=== PATIENT | female | born 1950 | race African-American/Black ===

== ENCOUNTER → 2016-09-24 | Outpatient (CLI) | payer MEDICARE | LOC: RAD 10:14 | PROVIDERS: ATTEND Specialist | DX: M54.5 Low back pain (principal) | CPT/HCPCS: 72110 ==

== ENCOUNTER → 2017-08-04 | Outpatient (CLI) | payer MEDICARE ==
--- NOTE | 2017-08-05 09:54 | RADIOLOGY REPORT (SQ) ---
EXAM DESCRIPTION: PET CT SKULL/THIGH COMPLETED DATE/TIME: 08/04/2017 7:53 pm REASON FOR STUDY: LUNG CANCER C34.11 MALIGNANT NEOPLASM OF UPPER LOBE, RIGHT BRONCHUS OR L COMPARISON: Prior CT chest exams 11/29/2015, 11/22/2014, 11/23/2013, 11/03/2012 [facility] prior PET-CT 12/27/2015 [facility] CT chest report 07/16/2017 RADIONUCLIDE AND DOSE: 13.6 mCi F18 FDG The route of agent administration: Intravenous FASTING BLOOD SUGAR: 79 mg/dl CONTRAST TYPE AND DOSE: No CT contrast given. TECHNIQUE: Blood glucose level was verified. Above dose of FDG was injected intravenously. 2-D seg mented attenuation correction images were obtained from the base of the skull to the midthighs. Nonc ontrast CT images were obtained for attenuation correction and fusion with emission images. CT image s were performed without oral or intravenous contrast and are not sensitive for parenchymal lesions. A series of overlapping emission PET images were obtained. Images reviewed and manipulated at [facility] work station by the radiologist. Images stored on PACS. LIMITATIONS: None. FINDINGS: HEAD AND NECK: No areas of abnormal metabolic activity in the soft tissues of the head and neck. CHEST: On image number 58, a low-density well-circumscribed lung nodule is present abutting the later al aspect of the aortic arch. This measures 2.5 x 2.3 cm in size, with SUV of 1.3. This has slowly enlarged over the series of CT exams dating back to 2012, where it measured 18 mm in greatest diamete r. This is slightly larger than on prior PET-CT report from 12/27/2015 where it measured 2.1 x 2.2 cm in size. A 1 cm x 0.7 cm pretracheal lymph node is present on axial image 58 with SUV 1.9. This is similar co mpared to prior studies dating back to 2012. ABDOMEN AND PELVIS: No areas of abnormal metabolic activity in the abdomen or pelvis. Expected physi ologic activity is present in the genitourinary system and bowel. PROXIMAL LOWER EXTREMITIES: No areas of abnormal metabolic activity in the soft tissues of the lower extremities. BONES: No abnormal metabolic activity in the visualized skeleton. ADDITIONAL CT FINDINGS: Left vocal cord paralysis. Diffuse changes of obstructive lung disease, with right upper lobectomy with surgical clips present. Post cholecystectomy and hysterectomy. Colonic diverticulosis without CT signs of acute diverticulitis OTHER: Blood pool background activity 1.9 SUV. Liver activity 2.0 SUV. IMPRESSION: Slowly enlarging mass in the medial left upper lobe upper lobe, with below baseline acti vity. Slow growth over time, as demonstrated on serial CT chest exams dating back to 2012 TECHNICAL DOCUMENTATION: JOB ID: [id number] [employer]- All Rights Reserved
== END ==
LOC: RAD 16:49
PROVIDERS: ATTEND Radiology Radiation Oncology
DX: C34.11 Malignant neoplasm of upper lobe, right bronchus or lung (principal)
CPT/HCPCS: 78815; A9552

== ENCOUNTER → 2017-08-19 | Outpatient (CLI) | payer MEDICARE ==
--- NOTE | 2017-08-19 10:54 | WOMENS IMAGING REPORT ---
EXAM DESCRIPTION: BONE DENSITY HIP/SPINE COMPLETED DATE/TIME: 08/19/2017 10:28 am REASON FOR STUDY: AGE-RELATED OSTEOPROSIS; M81.0 M81.0 AGE-RELATED OSTEOPOROSIS W/O CURRENT PATHOLO GIPEDRO FRA COMPARISON: 08/17/2015 TECHNIQUE: Dual-Energy X-ray Absorptiometry (DEXA) of the AP Spine and Hip. LIMITATIONS: None. FINDINGS: LUMBAR SPINE: The bone mineral density (BMD) measured from L1-L4 in the AP projection correlates with a T-score of -3.4, previously -3.2, which is osteoporosis as defined by the World Health Organization. HIP: The bone mineral density (BMD) measured in the left hip correlates with a T-score of -1.3, previously -1.5, which is osteopenia as defined by the World Health Organization. IMPRESSION: 1. LUMBAR SPINE: OSTEOPOROSIS. 2. HIP: OSTEOPENIA. COMMENT: The World Health Organization defines low BMD as follows: T-score: Normal: Greater than -1.0 Osteopenia: Between -1.0 and -2.5 Osteoporosis: Less than -2.5 without fractures Established osteoporosis: Less than -2.5 with fractures In general, you may wish to consider: Diagnosis Treatment Follow-up DEXA Normal BMD Prevention 2-3 years Osteopenia Prevention/Therapy 1-2 years Osteoporosis Therapy Yearly TECHNICAL DOCUMENTATION: JOB ID: [id number] [employer]- All Rights Reserved Reading location - IP/workstation name: [email or web address]
== END ==
LOC: WI 10:19
PROVIDERS: ATTEND Internal Medicine Hematology & Oncology
DX: M81.0 Age-related osteoporosis without current pathological fracture (principal)
CPT/HCPCS: 77080

== ENCOUNTER → 2018-07-08 | Outpatient (CLI) | payer MEDICARE ==
[2018-07-08 12:27] LABS: ALBUMIN 4.8 g/dL (3.5-5.0); CALCIUM 10.7 mg/dL (8.4-10.2); PHOSPHORUS 3.3 mg/dL (2.5-4.5)
== END ==
LOC: OD 11:08
PROVIDERS: ATTEND Otolaryngology
DX: E21.3 Hyperparathyroidism, unspecified (principal); Z79.899 Other long term (current) drug therapy
CPT/HCPCS: 36415; 82040; 82306; 82310; 83735; 83970; 84100; 84439; 84443

== ENCOUNTER → 2018-07-14 | Outpatient (CLI) | payer MEDICARE ==
--- NOTE | 2018-07-14 12:59 | RADIOLOGY REPORT (SQ) ---
EXAM DESCRIPTION: NM PARATHYROID IMAGING COMPLETED DATE/TIME: 07/14/2018 12:16 pm REASON FOR STUDY: HYPERPARATHYROIDISM E21.3 HYPERPARATHYROIDISM, UNSPECIFIED COMPARISON: None. RADIONUCLIDE AND DOSE: 21.0 millicuries Tc-99m Sestamibi. The route of agent administration: Intravenous ADDITIONAL DRUGS AND DOSES: None. TECHNIQUE: Early and delayed images of the neck acquired following radionuclide administration. LIMITATIONS: None. FINDINGS: Thyroid: Normal size. Homogeneous activity. Normal washout. No focal lesions. Parathyroid: No retained activity in the thyroid or elsewhere in the neck to indicate a parathyroid a denoma. Other: No other significant findings. IMPRESSION: NORMAL STUDY. NO EVIDENCE OF PARATHYROID ADENOMA. TECHNICAL DOCUMENTATION: JOB ID: [id number] [employer]- All Rights Reserved Reading location - IP/workstation name: [email or web address]
== END ==
LOC: RAD 08:04
PROVIDERS: ATTEND Otolaryngology
DX: E21.3 Hyperparathyroidism, unspecified (principal)
CPT/HCPCS: 78070; A9500; Q9969

== ENCOUNTER → 2018-07-16 | Outpatient (CLI) | payer MEDICARE ==
--- NOTE | 2018-07-16 11:35 | RADIOLOGY REPORT (SQ) ---
EXAM DESCRIPTION: U/S THYROID/SFT TISS HD NECK COMPLETED DATE/TIME: 07/16/2018 11:13 am REASON FOR STUDY: HYPERTHYROIDISM E21.3 HYPERPARATHYROIDISM, UNSPECIFIED COMPARISON: PET-CT exam 08/04/2017, CT chest 01/07/2017 TECHNIQUE: Dynamic and static greenwood-scale images acquired of the thyroid gland. Selected additional c olor/power Doppler images recorded. All images stored to PACS. LIMITATIONS: None. FINDINGS: RIGHT LOBE: Right lobe thyroid is 3.9 by 1.7 by 1.5 cm in size. Homogeneous echotexture. No cystic or solid masses. LEFT LOBE: Left lobe thyroid is 5 by 1.5 by 1.9 cm in size. Homogeneous echotexture. Benign colloid cysts are present in the lower pole left lobe thyroid measuring 4 mm and 5 mm in size. ISTHMUS: Normal size. Homogeneous echotexture. No cystic or solid masses. OTHER: No other significant finding. IMPRESSION: Benign colloid cysts left lower pole thyroid. Otherwise unremarkable study TECHNICAL DOCUMENTATION: JOB ID: [id number] [employer]- All Rights Reserved Reading location - IP/workstation name: [email or web address]
== END ==
LOC: RAD 10:07
PROVIDERS: ATTEND Otolaryngology
DX: E21.3 Hyperparathyroidism, unspecified (principal); E04.1 Nontoxic single thyroid nodule
CPT/HCPCS: 76536

== ENCOUNTER → 2018-08-15 | Outpatient (CLI) | payer MEDICARE ==
--- NOTE | 2018-08-15 15:46 | RADIOLOGY REPORT (SQ) ---
EXAM DESCRIPTION: CT SOFT TISSUE NECK COMBO COMPLETED DATE/TIME: 08/15/2018 3:20 pm REASON FOR STUDY: E21.0 PRIMARY HYPERPARATHYROIDISM E21.0 PRIMARY HYPERPARATHYROIDISM COMPARISON: Thyroid ultrasound 07/16/2018 Parathyroid imaging 07/15/2018 PET-CT 08/04/2017 CT chest exams 11/23/2013, 11/22/2014, 11/29/2015, 01/07/2017 TECHNIQUE: Post IV contrasted scanning from skull base through lung apices with review of bone, soft tissue and lung windows. Reconstructed coronal and sagittal MPR images reviewed. All images stored on PACS. All CT scanners at this facility use dose modulation, iterative reconstruction, and/or weight based d osing when appropriate to reduce radiation dose to as low as reasonably achievable (ALARA). [facility]: Dose Right [facility]: CareDose [facility]: Dose Right [facility]: Teradose 4D [facility]: [employer] CONTRAST TYPE AND DOSE: contrast/concentration: Isovue 350.00 mg/ml; Total Contrast Delivered: 75.0 ml; Total Saline Delivered: 55.0 ml RENAL FUNCTION: Creatinine 0.5 RADIATION DOSE: 35 mGy . LIMITATIONS: None. FINDINGS: SKULL BASE: Intact. MAJOR SALIVARY GLANDS: No solid or cystic masses. No inflammatory changes. LYMPHADENOPATHY: No adenopathy. MUCOSAL MASSES OR ASYMMETRY: No mucosal masses or asymmetry. LARYNX/CORDS: No abnormal findings. VASCULAR STRUCTURES: The major vessels are patent. LUNG APICES: Old right upper lobectomy. 2.6 x 2.3 cm nodule in the medial left upper lobe (was 2.5 c m in greatest diameter in July 2017). BONES: Intact. THYROID: There is streak artifact on images through the thyroid gland from the clavicles and contrast in the subclavian vein. This causes some streak artifact. On images without streak artifact, a wel l-circumscribed hypodense 1.4 x 1.3 x 2 cm lower pole right lobe thyroid nodule is present with mural calcification in the wall. This was not apparent on thyroid ultrasound 07/16/2018, and was non metab olic on PET-CT 08/04/2017. There are 3 mm and 4 mm colloid cysts in the lower pole left thyroid gland unchanged from ultrasound 07/16/2018. PARANASAL SINUSES: Clear. OTHER: No soft tissue neck masses suspicious for parathyroid adenoma. IMPRESSION: No soft tissue neck masses suspicious for parathyroid adenoma. Hypodense 2 x 1.3 x 1.4 cm nodule lower pole right lobe thyroid, not apparent on prior ultrasound (is odense echogenicity compared to the remainder the thyroid). This finding was Non metabolic on PET-CT 08/04/2017. TECHNICAL DOCUMENTATION: JOB ID: [id number] Quality ID # [id number]: Final reports with documentation of one or more dose reduction techniques (e.g., Au tomated exposure control, adjustment of the mA and/or kV according to patient size, use of iterative reconstruction technique) 2010 [employer]- All Rights Reserved Reading location - IP/workstation name: [email or web address]
== END ==
LOC: RAD 15:51
PROVIDERS: ATTEND Otolaryngology
DX: E21.0 Primary hyperparathyroidism (principal)
CPT/HCPCS: 70492

== ENCOUNTER → 2018-09-19 | Outpatient (CLI) | payer MEDICARE ==
--- NOTE | 2018-09-19 11:48 | RADIOLOGY REPORT (SQ) ---
EXAM DESCRIPTION: CT CHEST WITHOUT COMPLETED DATE/TIME: 09/19/2018 11:04 am REASON FOR STUDY: SOLITARY PULMONARY NODULE R91.1 SOLITARY PULMONARY NODULE COMPARISON: 2014. 11/29/2015. CT neck 08/15/2018. Outside PET-CT from 08/04/2017. TECHNIQUE: CT scan performed of the chest without intravenous contrast. Images reviewed with lung, soft tissue and bone windows. Reconstructed coronal and sagittal MPR images reviewed. All images st ored on PACS. All CT scanners at this facility use dose modulation, iterative reconstruction, and/or weight based d osing when appropriate to reduce radiation dose to as low as reasonably achievable (ALARA). [facility]: Dose Right [facility]: CareDose [facility]: Dose Right [facility]: Teradose 4D [facility]: [employer] RADIATION DOSE: CT Rad equipment meets quality standard of care and radiation dose reduction techniq ues were employed. CTDIvol: 7.9 mGy. DLP: 312 mGy-cm. mGy. LIMITATIONS: No technical limitations. FINDINGS: LUNGS AND PLEURA: Emphysema. Scarring. Left upper lobe nodule measures 2.8 x 2.4 cm toda y. In 2016 this measures up to 2.3 cm. On a comparison outside PET-CT from 2018, maximal dimension is 2.5 cm. The lesion shows relatively low density Hounsfield units suggesting significant internal fat. Smooth margins. No calcification. HILAR AND MEDIASTINAL STRUCTURES: No identified masses or abnormal nodes. No obvious aneurysm. HEART AND VASCULAR STRUCTURES: No aneurysm. No pericardial effusion. UPPER ABDOMEN: No significant findings. Limited exam. THYROID AND OTHER SOFT TISSUES: No masses. No adenopathy. BONES: No significant finding. HARDWARE: None in the chest. OTHER: No other significant findings. IMPRESSION: 1. Mass in the left upper lobe shows slow enlargement over time. Suspect significant internal fat co ntent, probable slowly progressing hamartoma. TECHNICAL DOCUMENTATION: JOB ID: [id number] Quality ID # [id number]: Final reports with documentation of one or more dose reduction techniques (e.g., Au tomated exposure control, adjustment of the mA and/or kV according to patient size, use of iterative reconstruction technique) 2010 [employer]- All Rights Reserved Reading location - IP/workstation name: [email or web address]
== END ==
LOC: RAD 10:25
PROVIDERS: ATTEND Internal Medicine Pulmonary Disease
DX: R91.1 Solitary pulmonary nodule (principal)
CPT/HCPCS: 71250

== ENCOUNTER → 2020-04-26 | Day surgery (SDC) | payer MEDICARE ==
[~2020-04-26] MED LIST: METHYLPREDNISOLONE ACETATE INJ 80 MG/1 ML VIAL ONE
--- NOTE | 2020-04-26 15:06 | RADIOLOGY REPORT (SQ) ---
EXAM DESCRIPTION: INJECT/ASPIR HIP/SHLDR/KNEE; FLUORO/NEEDLE PLACEMENT IMAGES COMPLETED DATE/TIME: 04/26/2020 1:25 pm REASON FOR STUDY: (M16.11)UNILATERAL PRIMARY OSTEOARTHRITIS, RIGHT HIP M16.11 UNILATERAL PRIMARY OS TEOARTHRITIS, RIGHT HIP COMPARISON: None. FLUOROSCOPY TIME: 0.3 minute 1 images saved to PACS. LIMITATIONS: None. PROCEDURE: SITE OF INJECTION: Right hip LOCALIZING CONTRAST TYPE AND DOSE: 0.5 cc Omnipaque MEDICATION TYPE AND DOSE: 80 mg Depo-Medrol. Using local anesthesia and sterile technique with fluoroscopic guidance, the needle was advanced into the joint. Iodinated contrast was injected to verify intraarticular placement. This was followed by therapeutic injection of the indicated medications. The needle was removed. There were no immediat e complications. Preprocedure pain level: 5/5. Postprocedure pain level: 0/5. IMPRESSION: THERAPEUTIC INJECTION OF THE right hip JOINT ABOVE. COMMENT: Patient medication list reviewed: Yes- Quality ID# [id number]:Eligible professional attests to doc umenting in the medical record they obtained, updated, or reviewed the patient's current medications. . Quality ID 145: Final reports for procedures using fluoroscopy that document radiation exposure anup marti, or exposure time and number of fluorographic images (if radiation exposure indices are not avail able) TECHNICAL DOCUMENTATION: JOB ID: [id number] 2010 [employer]- All Rights Reserved Reading location - IP/workstation name: [email or web address]
== END ==
LOC: RAD 12:45
PROVIDERS: ATTEND Family Medicine
DX: M16.11 Unilateral primary osteoarthritis, right hip (principal)
CPT/HCPCS: 20610; 77002; J1040

== ENCOUNTER → 2020-06-27 | Outpatient (CLI) | payer MEDICARE | LOC: OD 13:38 | PROVIDERS: ATTEND Otolaryngology | DX: E21.0 Primary hyperparathyroidism (principal) | CPT/HCPCS: 36415; 82306; 82310; 83970 ==